=== PATIENT | female | born 1985 | race Caucasian/White ===

== ENCOUNTER 2017-03-26 15:20 | Inpatient (IN) ==
[2017-03-26 16:18] VITALS: BMI 37.0
[2017-03-26] MEDS ORDERED: MAG-AL + SIM ORAL LIQUID 30ml PO PRN (16:55)
[2017-03-26] MEDS ORDERED: ACETAMINOPHEN 500 MG TABLET PO PRN (16:55)
[2017-03-26] MEDS ORDERED: CALCIUM CARBONATE Chewable 500mg TABLET PO PRN (16:55)
[2017-03-26] MEDS ORDERED: LIDOCAINE 1% (10mg/ml) 2mL INJ PF SDV ID PRN (16:55)
[2017-03-26] MEDS ORDERED: CARBOPROST 250 MCG/ML INJECTION IM PRN (16:55)
[2017-03-26] MEDS ORDERED: METHYLERGONOVINE 0.2 MG/ML INJECTION IM PRN (16:55)
[2017-03-27] MEDS: LR 1,000 ML IV PRN ×2 (04:58→16:07)
[2017-03-27] MEDS ORDERED: OXYTOCIN DRIP 30 UNIT/500 ML ML IV PRN (05:00)
[2017-03-27] MEDS: D5LR 1,000 ML IV PRN ×2 (05:15→13:50)
[2017-03-27] MEDS ORDERED: DiphenhydrAMINE 50 MG/ML INJECTION IVP PRN (16:08)
[2017-03-27] MEDS ORDERED: ONDANSETRON 4 MG/2 ML INJECTION IVP PRN (16:08)
[2017-03-27] MEDS ORDERED: NALOXONE 0.4 MG/ML INJECTION IVP PRN (16:08)
[2017-03-27] MEDS ORDERED: ROPIVACAINE 1% 10MG/ML INJ 200 MG, SUFentanil 50 MCG in NS 100 ML EPI PRN (16:08)
--- NOTE | 2017-03-27 16:08 | Anesthesia Preoperative Report ---
Anesthesia Epidural/Spinal Rec - Date and Time Date: 03/27/17 Procedure: Labor Epidural Plan: Epidural - Vital Signs Vital Signs: Temperature 98.1 F 03/26/17 23:26 Pulse Rate 71 03/26/17 23:26 Respiratory Rate 16 03/26/17 23:26 Blood Pressure 132/76 03/26/17 23:26 Pulse Oximetry 97 03/26/17 23:26 /Para: P:0 - Medictaions & Allergies Inpatient Medications: Current Medications Acetaminophen (Tylenol) 500 - 1,000 mg PO Q4H PRN PRN Reason: Pain Last Admin: 03/26/17 23:50 Dose: 1,000 mg Al Hydroxide/Mg Hydroxide (Maalox Plus) 30 ml PO Q3H PRN PRN Reason: Indigestion Calcium Carbonate (Tums) 500 - 1,000 mg PO Q2H PRN PRN Reason: Indigestion Carboprost Tromethamine (Hemabate) 250 mcg IM O PRN PRN Reason: .Downtime Lactated Ringer's (Lactated Ringers) 1,000 mls @ 999 mls/hr IV .Q1H1M PRN Last Admin: 03/27/17 04:58 Dose: 999 mls/hr Oxytocin (Pitocin Drip) 30 unit in 500 mls @ 2 mls/hr IV .Q24H PRN; Protocol PRN Reason: Induction/Augmentation Last Admin: 03/27/17 05:16 Dose: 2 mls/hr Dextrose/Lactated Ringer's (Dextrose 5%-Lactated Ringers) 1,000 mls @ 125 mls/ hr IV .Q8H PRN PRN Reason: Labor Last Admin: 03/27/17 13:50 Dose: 125 mls/hr Lidocaine HCl (Xylocaine-Mpf 1% Vial) 0.2 mg ID O PRN PRN Reason: IV Start Methylergonovine Maleate (Methergine) 0.2 mg IM O PRN Misoprostol (Cytotec) 800 mcg RI ONCE PRN Allergies/Adverse Reactions: Allergies Allergy/AdvReac Type Severity Reaction Status Date / Time Sulfa (Sulfonamide Allergy Unknown Rash Verified 03/26/17 18:43 Antibiotics) - Home Medications Home Medications: Home Medications Medication Instructions Recorded Confirmed Type Gummies 1 tab PO CHEW DAILY 03/20/17 03/26/17 History Zantac 75 tab PO BID 03/20/17 03/26/17 History Tylenol 2 tab PO Q4-6HPRN PRN 03/26/17 03/26/17 History - Medical History Cardiovascular: Reports: 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) Gastrointestional: Reports: Gastroesophageal Reflux Disease (occassional) Other History: Reports: Anesthesia Reactions (nausea), Now - Surgical History GI Surgery/Treatments: Reports: Cholecystectomy (2016) Reproductive Surgery/Treatment: DENIES: Section Anesthesia Reactions: Nausea and Vomiting Hx Family Anesthesia Reaction: No - Social History Smoking Status: Never smoker Substance Use Type: does not use - Pertinent Findings Lab Data: CBC and BMP 03/26/17 15:53 03/26/17 15:53 BMP 03/26/17 03/26/17 14:30 15:53 Sodium 140 Potassium 3.9 Chloride 109 H Carbon Dioxide 23 BUN 8.0 Creatinine 0.7 0.7 Glucose 89 Calcium 9.6 Liver Function 03/26/17 Range/Units 15:53 Total Bilirubin 0.30 (0.20-1.30) MG/DL AST 25 (14-36) U/L ALT 27 (9-52) U/L Alkaline Phosphatase 125 (38-126) U/L Albumin 3.4 L (3.5-5.0) G/DL Urine 03/26/17 Range/Units 14:30 Urine Protein 12 MG/DL - Physical Exam Respiratory Exam: lungs clear, bilateral breath sounds equal Cardiovascular Exam: regular rate and rhythm - Airway Assessment Mallampati Score: II TMD: 3 Fingerbreadths Neck Extension: good Overall Assessment: may be difficult mask vent, may be difficult intubation - ASA ASA Score: 2 - Discussion Discussion: Discussed risks/options/alternatives of anesthesia and questions answered. Patient consents. Nursing pain assessment noted. Anesthesia Discussion: spouse Attestation Statement: Prior to the delivery of any anesthetic medication, I examined the patient, developed the plan, obtained the patient's consent and discussed the risk and benefits of the procedure with the patient/guardian.
[2017-03-27] MEDS ORDERED: CITRIC ACID/SODIUM CITRATE 30ml PO ONE (16:15)
[2017-03-27] MEDS ORDERED: CEFAZOLIN PREMIX (MC ONLY) 2 GM/50 ML BAG IV ONE (16:15)
[2017-03-27] MEDS ORDERED: FAMOTIDINE PB 20 MG/50 ML BAG IV ONE (16:15)
[2017-03-27] MEDS ORDERED: AZITHROMYCIN IV 500 MG in NS 250ml 250 ML IV SCH (16:30)
[2017-03-27] MEDS ORDERED: ONDANSETRON 4 MG/2 ML INJECTION ONE (16:30)
[2017-03-27] MEDS: OXYTOCIN BOLUS BAG 30 UNIT/500 ML ML IV SCH ×2 (16:40→17:18)
[2017-03-27] MEDS ORDERED: DEXAMETHASONE 4 MG/ML INJECTION ONE (16:42)
[2017-03-27] MEDS ORDERED: MORPHINE SULFATE PF 5mg/10ml INJ (Duramorph) ONE (17:06)
[2017-03-27] MEDS ORDERED: CALCIUM CARBONATE Chewable 500mg TABLET PO PRN (19:17)
[2017-03-27] MEDS ORDERED: METOCLOPRAMIDE 10mg/2ml INJECTION IVP PRN (19:17)
[2017-03-27] MEDS ORDERED: OXYTOCIN DRIP 30 UNIT/500 ML ML IV SCH (19:17)
[2017-03-27] MEDS ORDERED: D5LR 1,000 ML IV SCH (19:17)
[2017-03-27] MEDS ORDERED: SIMETHICONE 80 MG CHEWABLE TABLET PO PRN (19:17)
[2017-03-27] MEDS ORDERED: HYDROCORTISONE 2.5% CREAM 30gm RECTALLY PRN (19:17)
[2017-03-27] MEDS ORDERED: ACETAMINOPHEN 500 MG TABLET PO PRN (19:17)
[2017-03-27] MEDS: HYDROCODONE/APAP 5mg/325mg TABLET PO PRN (19:56)
[2017-03-27] MEDS: IBUPROFEN 800 MG TABLET PO PRN (19:56)
[2017-03-27] MEDS: SIMETHICONE 80 MG CHEWABLE TABLET PO SCH (22:05)
[2017-03-28] MEDS: DOCUSATE CALCIUM 240 MG CAPSULE PO SCH (08:10)
[2017-03-28] MEDS: SIMETHICONE 80 MG CHEWABLE TABLET PO SCH ×4 (08:10→20:24)
--- NOTE | 2017-03-28 08:21 | OB/GYN Progress Note ---
<Emani Rose - Last Filed: 03/28/17 08:21> OB-PP Progress Note - General PPD1 POD:: POD1 Maternal Group B Strep: Negative Maternal blood type: O+ Maternal Rubella Status: Immune - Subjective Date: 03/28/17 Lochia: Moderate Pain: controlled Voiding: palma still in place Nausea or Vomiting Present: No - Objective Vital Signs: Last Vital Signs Temp 97.5 F 03/28/17 03:40 Pulse 79 03/28/17 03:40 Resp 16 03/28/17 03:40 BP 136/87 03/28/17 03:40 Pulse Ox 99 03/28/17 03:40 Urine Output: adequate Urine Output: Urine output hasn't been great. Encg'd to push fluids. Will monitor. General: alert and oriented Respiratory: non-labored Abdomen: fundus firm Incision: Dressing clean and dry Extremities: non-tender Edema: none Laboratory: Laboratory Results - last 24 hr 03/27/17 03/27/17 03/28/17 17:06 17:06 06:39 WBC 19.3 H D RBC 3.51 L Hgb 10.3 L D Hct 31.3 L D MCV 89.2 MCH 29.3 MCHC 32.9 RDW Std Deviation 41.8 Plt Count 177 MPV 12.6 H Cord ABG pH 7.258 Cord ABG pCO2 52.3 Cord ABG pO2 14 Cord ABG HCO3 23 Cord ABG Total CO2 25 Cord ABG Base Excess -5.0 Cord ABG O2 Sat 13.0 Cord VBG pH 7.227 Cord VBG pCO2 54.6 Cord VBG pO2 6 Cord VBG HCO3 23 Cord VBG Total CO2 24 Cord VBG Base Excess -6.0 Cord VBG O2 Sat 3.0 - Assessment Assessment: SP, Primary C/S - Plan Plan: routine care <Cherry Arias - Last Filed: 03/28/17 09:32> OB-PP Progress Note - Subjective Date: 03/28/17 - Objective Vital Signs: Last Vital Signs Temp 97.5 F 03/28/17 03:40 Pulse 79 03/28/17 03:40 Resp 16 03/28/17 03:40 BP 136/87 03/28/17 03:40 Pulse Ox 99 03/28/17 03:40 Laboratory: Laboratory Results - last 24 hr 03/27/17 03/27/17 03/28/17 17:06 17:06 06:39 WBC 19.3 H D RBC 3.51 L Hgb 10.3 L D Hct 31.3 L D MCV 89.2 MCH 29.3 MCHC 32.9 RDW Std Deviation 41.8 Plt Count 177 MPV 12.6 H Cord ABG pH 7.258 Cord ABG pCO2 52.3 Cord ABG pO2 14 Cord ABG HCO3 23 Cord ABG Total CO2 25 Cord ABG Base Excess -5.0 Cord ABG O2 Sat 13.0 Cord VBG pH 7.227 Cord VBG pCO2 54.6 Cord VBG pO2 6 Cord VBG HCO3 23 Cord VBG Total CO2 24 Cord VBG Base Excess -6.0 Cord VBG O2 Sat 3.0 - Plan Patient seen, and I agree with DW's note. Incision C/D/I. Q&A regarding labor/ delivery.
[2017-03-28] MEDS: HYDROCODONE/APAP 5mg/325mg TABLET PO PRN ×3 (08:42→20:24)
--- NOTE | 2017-03-28 11:18 | Operative Note ---
DATE OF OPERATION 03/27/2017 PREOPERATIVE DIAGNOSES 1. 32-year-old 1 at 39 weeks 1 day gestational age. 2. Mild preeclampsia. 3. distress with late decelerations. 4. Protraction of the active phase. POSTOPERATIVE DIAGNOSES 1. 32-year-old 1 at 39 weeks 1 day gestational age. 2. Mild preeclampsia. 3. distress with late decelerations. 4. Protraction of the active phase. PROCEDURE Primary low transverse section. SURGEON Dr. Cherry Arias PRODUCT SAFETY SPECIALIST Dr. Gustavo Hicks ANESTHESIA Epidural by Javi Saunders CRNA COMPLICATIONS None. EBL 800 ml FINDINGS Viable female infant, cephalic OP position, clear fluids, Apgars , weight 2996 g, name "Vic." There was a nuchal cord x 1. Normal-appearing uterus, tubes and ovaries. INDICATIONS Kelly was brought in last evening for cervical ripening with a Jonas bulb due to mild preeclampsia. This morning she was started on Pitocin. Her membranes ruptured spontaneously returning clear fluids. Her Pitocin had to be turned off during the day due to tachysystole and late decelerations. An IUPC and DFM were placed at one point because the external monitors were not recording well. The patient finally received an epidural. She started having spontaneous decelerations again and was only 5 cm and 0 station. She was consented for a C- section. DESCRIPTION OF PROCEDURE The patient was taken to the operating room where her epidural was brought up to adequate surgical levels. She already had a Jonas catheter in place. Her internal monitors were removed. She was prepared and draped in the normal sterile fashion. A Pfannenstiel skin incision was made and carried down to the fascia. The fascia was incised in the midline and extended laterally with the Varela scissors. The fascia was elevated and the underlying rectus muscles were dissected off. The peritoneum was opened with a combination of blunt and sharp dissection. This was extended superiorly and inferiorly with good visualization of the bladder. The bladder blade was inserted. A bladder flap was created sharply and the bladder blade was reinserted. The lower uterine segment was incised in a transverse fashion layer by layer with a scalpel and bluntly extended. The 's head was delivered atraumatically. The nose and mouth were suctioned. The nuchal cord was reduced. The cord was clamped and cut. The was handed to Dr. Benites who was asked to attend due to the distress. The placenta delivered spontaneously. The uterus was exteriorized and cleared of all clots and debris. The uterine incision was closed with running locked O Monocryl. There was a small extension on the right edge of the incision. This was also closed with the running-locked O Monocryl. A couple of [id number] were placed superior to the extension for good hemostasis. The uterus was returned to the abdomen. The gutters were cleared of all clots and debris. The uterine incision was inspected one final time and still noted to be hemostatic. The peritoneum was closed with running 2-0 Vicryl. Hemostasis was obtained in the rectus muscles with the cautery. The fascia was closed with running 0 Vicryl. Hemostasis was obtained in the subcutaneous tissue with cautery. Mickey's fascia was closed with running 2-0 chromic. The skin was closed with 4-0 Vicryl in a subcuticular manner. Steri-Strips were placed. Sponge, sharp and instrument counts were correct. The patient tolerated the procedure well and was taken to the recovery room in good condition. LEX
[2017-03-28] MEDS: IBUPROFEN 800 MG TABLET PO PRN ×2 (11:47→20:24)
[2017-03-28] MEDS: DiphenhydrAMINE 25 MG CAPSULE PO PRN ×2 (12:13→17:59)
[2017-03-29] MEDS: SIMETHICONE 80 MG CHEWABLE TABLET PO SCH ×5 (00:19→21:18)
[2017-03-29] MEDS: HYDROCODONE/APAP 5mg/325mg TABLET PO PRN ×5 (00:19→21:18)
[2017-03-29] MEDS: IBUPROFEN 800 MG TABLET PO PRN ×3 (04:29→21:19)
--- NOTE | 2017-03-29 07:54 | OB/GYN Progress Note ---
OB-PP Progress Note - General PPD2 Maternal Group B Strep: Negative Maternal blood type: O+ Maternal Rubella Status: Immune - Subjective Date: 03/29/17 Lochia: Minimal Pain: controlled Voiding: voiding - Objective Vital Signs: Last Vital Signs Temp 98.3 F 03/29/17 04:30 Pulse 91 03/29/17 04:30 Resp 16 03/29/17 04:30 BP 131/72 03/29/17 04:30 Pulse Ox 99 03/29/17 04:30 General: alert and oriented Abdomen: fundus firm, non-tender, soft, non-distended Incision: normal, clean, no erythema, dry, intact Extremities: non-tender - Assessment (1) Status post primary low transverse section Status: Acute - Plan Plan: routine care
[2017-03-29] MEDS: DOCUSATE CALCIUM 240 MG CAPSULE PO SCH (08:53)
[2017-03-29 15:23] VITALS: O2SAT 98
[2017-03-30] MEDS: IBUPROFEN 800 MG TABLET PO PRN (05:08)
[2017-03-30] MEDS: HYDROCODONE/APAP 5mg/325mg TABLET PO PRN ×3 (05:09→14:13)
[2017-03-30 05:50] VITALS: RESP 16
--- NOTE | 2017-03-30 08:57 | OB/GYN Progress Note ---
OB-PP Progress Note - General PPD3 Maternal Group B Strep: Negative Maternal blood type: O+ Maternal Rubella Status: Immune - Subjective Date: 03/30/17 Lochia: Minimal Pain: controlled Voiding: voiding - Objective Vital Signs: Last Vital Signs Temp 98.3 F 03/30/17 04:52 Pulse 84 03/30/17 04:52 Resp 16 03/30/17 04:52 BP 142/95 H 03/30/17 04:52 Pulse Ox 98 03/30/17 04:52 General: alert and oriented Abdomen: fundus firm, non-tender, soft, non-distended Incision: normal, clean, no erythema, dry, intact Extremities: non-tender - Assessment (1) Status post primary low transverse section Status: Acute (2) Mild pre-eclampsia delivered Status: Acute - Plan Plan: routine care, discharge home, continue PNV
[2017-03-30] MEDS: SIMETHICONE 80 MG CHEWABLE TABLET PO SCH ×2 (09:58→14:13)
[2017-03-30] MEDS: DOCUSATE CALCIUM 240 MG CAPSULE PO SCH (09:58)
[2017-03-30 14:33] VITALS: BP 134/89; PULSE 80; TEMP 98.2
== END 2017-03-30 14:20 | disposition home or self-care (01) | DRG 766 ==
LOC: MC 15:21 → MC.APPT 15:31 → MC 16:54
PROVIDERS: ADMIT Obstetrics & Gynecology; ATTEND Obstetrics & Gynecology